=== PATIENT | female | born 2000 | race Two or more races ===

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

== ENCOUNTER 2021-09-20 14:40 | Emergency (ER) | payer OTHER ==
[~2021-09-20] VITALS: Ht 152.4 cm; Wt 75.3 kg
[~2021-09-20 14:40] MED LIST: PRENATAL TABLE1 EAC1 PO
== END 2021-09-20 20:22 | disposition home or self-care (01) ==
LOC: ER 14:40 → EMR PED 14:54 → ER 14:54 → EMR PED 20:22
DX: M54.9 Dorsalgia, unspecified (principal)

== ENCOUNTER 2023-07-20 03:19 | Emergency (ER) | payer OTHER ==
[~2023-07-20] VITALS: Ht 154.9 cm; Wt 83.0 kg
[2023-07-20 04:58] LABS: PH,URINE 7.5 (5.0-8.0); URINE APPEARANCE Turbid; URINE BILIRRUBIN Negative (NEGATIVE); URINE BLOOD Large; URINE COLOR Orange; URINE GLUCOSE Negative (NEGATIVE); URINE LEUKOCYTE Large; URINE NITRATE Negative
[2023-07-20 05:21] LABS: URINE BACTERIA 845.4 uL (0.0-1933); URINE EPITHELIAL CELLS 32.7 uL (0.0-38.8)
[2023-07-20 05:23] LABS: URINE PROTEIN 100 (NEGATIVE); URINE RBC > 10558.9 uL (0.0-20.8); URINE WBC > 5548.3 uL (0.0-23.2)
[2023-07-20] MEDS ORDERED: CEPHALEXIN500 MG PO (05:37)
[2023-07-20] MEDS ORDERED: PYRIDIUM DS200 MG PO (05:37)
== END 2023-07-20 05:47 | disposition home or self-care (01) ==
LOC: ER 03:20
PROVIDERS: General Practice
DX: N30.01 Acute cystitis with hematuria (principal)

== ENCOUNTER 2025-07-03 12:12 | Outpatient (CLI) | payer OTHER ==
[~2025-07-03 12:12] MED LIST changes: +CEPHALEXIN500 MG PO; +PRENATAL 19 CH1 EACH PO; +PYRIDIUM DS200 MG PO
== END 2025-07-03 12:14 | disposition home or self-care (01) ==
LOC: PRENATAL 12:12
PROVIDERS: ATTEND Obstetrics & Gynecology Maternal & Fetal Medicine
DX: O36.80X0 Pregnancy with inconclusive fetal viability, not applicable or unspecified (principal); Z36.82 Encounter for antenatal screening for nuchal translucency; Z14.8 Genetic carrier of other disease; Z3A.12 12 weeks gestation of pregnancy